=== PATIENT | male | born 1970 | race Hispanic/Latino ===

== ENCOUNTER 2018-12-24 16:27 | Emergency (ER) | payer SELFPAY ==
[2018-12-24 17:34] LABS: BASOPHILS % (AUTO) 0.8 % (0.0-5.0); MEAN CORPUSCULAR HEMOGLOBIN 32.1 pg (27.0-33.0); MEAN CORPUSCULAR HGB CONC 33.5 g/dL (32.0-36.0); MEAN CORPUSCULAR VOLUME 95.8 fL (79-99); MONOCYTES % (AUTO) 12.3 % (3.0-13.0); NEUTROPHILS % (AUTO) 74.9 % (40.0-77.0); PLATELET COUNT (AUTO) 91 K/uL (130-400); RED BLOOD CELL COUNT(AUTO) 4.49 MIL/uL (4.50-6.20); RED CELL DISTRIBUTION WIDTH 15.5 % (11.0-15.5); WHITE BLOOD COUNT (AUTO) 5.8 K/uL (4.8-10.8)
[2018-12-24 17:46] LABS: CREATININE 0.7 mg/dL (0.5-1.5); POTASSIUM 4.3 mmol/L (3.5-5.1)
[2018-12-24] MEDS ORDERED: SULFAMETHOX-TMP DS 800/160 TAB ONE (17:46)
[2018-12-24] MEDS ORDERED: TRAMADOL HCL 50 MG TABLET ONE (17:46)
== END 2018-12-24 18:53 | disposition home or self-care (01) ==
LOC: EDH 16:27
DX: L02.611 Cutaneous abscess of right foot (principal); I10 Essential (primary) hypertension; K74.60 Unspecified cirrhosis of liver
CPT/HCPCS: 10061; 36415; 73630; 80048; 85025